=== PATIENT | male | born 1995 | race Caucasian/White ===

== ENCOUNTER 2017-09-17 08:12 | Outpatient (CLI) | payer OTHER ==
[~2017-09-17 08:12] MED LIST: ANALPRAM HC 2.530 GM; BUCALSEP SPRAY30 ML MM; DOLOGEN CAPLET1 EACH PO; MEDROL4 MG PO; VOLTAREM 50 MG PO
== END 2017-09-17 08:15 | disposition home or self-care (01) ==
LOC: TOM 08:12
DX: R22.1 Localized swelling, mass and lump, neck (principal)

== ENCOUNTER 2017-10-13 10:08 | Emergency (ER) | payer OTHER ==
[~2017-10-13] VITALS: Ht 167.6 cm; Wt 88.5 kg
== END 2017-10-13 13:26 | disposition home or self-care (01) ==
LOC: ER 10:08
DX: R07.89 Other chest pain (principal); F06.4 Anxiety disorder due to known physiological condition

== ENCOUNTER 2017-10-18 10:19 | Outpatient (CLI) | payer OTHER | END 2017-10-18 10:20 | disposition home or self-care (01) | LOC: LAB 10:19 | DX: N47.8 Other disorders of prepuce (principal) ==

== ENCOUNTER 2017-10-20 07:42 | Outpatient (CLI) | payer OTHER | END 2017-10-20 07:48 | disposition home or self-care (01) | LOC: LAB 07:42 → EKG 07:42 | DX: N47.8 Other disorders of prepuce (principal) ==

== ENCOUNTER 2017-10-21 09:28 | Outpatient (CLI) | payer OTHER | END 2017-10-21 09:40 | disposition home or self-care (01) | LOC: SONOGRAMA 09:28 | DX: N62 Hypertrophy of breast (principal) ==

== ENCOUNTER 2018-03-18 12:52 | Emergency (ER) | payer OTHER ==
[~2018-03-18] VITALS: Ht 182.9 cm; Wt 90.7 kg
== END 2018-03-18 15:06 | disposition home or self-care (01) ==
LOC: ER 12:52
DX: J11.1 Influenza due to unidentified influenza virus with other respiratory manifestations (principal); R50.9 Fever, unspecified